=== PATIENT | female | born 1955 | race Caucasian/White ===

== ENCOUNTER 2019-04-21 13:51 | Emergency (ER) | payer BC ==
[~2019-04-21] VITALS: Ht 149.9 cm; Wt 69.8 kg
[2019-04-21 13:52] VITALS: BP 130/81
[2019-04-21] MEDS ORDERED: SYNTHROID100 MC1 PO (14:15)
[2019-04-21] MEDS ORDERED: PROTONIX40 MG PO (15:12)
== END 2019-04-21 15:20 | disposition home or self-care (01) ==
LOC: ER 13:51
DX: T18.128A Food in esophagus causing other injury, initial encounter (principal); K21.9 Gastro-esophageal reflux disease without esophagitis; Z88.2 Allergy status to sulfonamides; X58.XXXA Exposure to other specified factors, initial encounter